=== PATIENT | male | born 1960 | race Caucasian/White ===

== ENCOUNTER → 2016-02-27 | Outpatient (CLI) | payer BC ==
[~2016-02-27] MED LIST: ALBU8.5H6 INH; CLON1TAB3 PO; SCR1T PO
[2016-02-27 15:05] LABS: BASOPHILS % (AUTO) 1 % (0-2); EOSINOPHILS # (AUTO) 0.3 10^3uL; EOSINOPHILS % (AUTO) 3 % (0-4); LYMPHOCYTES # (AUTO) 3.1 X10^3; MEAN CORPUSCULAR HEMOGLOBIN 28.1 PG (26.0-34.0); MEAN CORPUSCULAR HGB CONC 34.8 g/dL (31.0-37.0); MEAN CORPUSCULAR VOLUME 81 FL (80-100); MEAN PLATELET VOLUME 10.4 FL (6.0-9.5); MONOCYTES # (AUTO) 1.1 X10^3; MONOCYTES % (AUTO) 11 % (3-11); NEUTROPHILS % (AUTO) 57 % (51-67); PLATELET COUNT 210 10^3uL (150-450); WHITE BLOOD COUNT 10.53 10^3uL (4.0-11.0)
[2016-02-27 15:28] LABS: GLUCOSE, URINE (UA) Negative (Negative); LEUKOCYTE ESTERASE, URINE Negative (Negative)
[2016-02-27 15:30] LABS: ALBUMIN 4.8 g/dL (3.4-5.0); ANION GAP 19.9 MEQ/L (3-15); TOTAL PROTEIN 8.1 g/dL (6.4-8.5)
[2016-02-27 15:44] LABS: BILIRUBIN,URINE 2+ (Negative); CLARITY,URINE Slightly Cloudy; COLOR,URINE Dark Yellow
[2016-02-27 15:47] LABS: URINE CENTRIFUGED VOLUME 12 mL
[2016-02-27 15:50] LABS: RBC,URINE 0-2 /HPF
[2016-02-27 15:51] LABS: AMPHETAMINE SCREEN, URINE Negative (Negative); CANNABINOID SCREEN, URINE Negative (Negative); METHAMPHETAMINE SCREEN URINE S NEGATIVE (NEGATIVE); OPIATE SCREEN URINE Negative (Negative)
[2016-02-27 15:52] LABS: PROPOXYPHENE STAT NEGATIVE (NEGATIVE)
== END ==
LOC: LAB 14:45
PROVIDERS: ATTEND Family Medicine
DX: R56.9 Unspecified convulsions (principal)
CPT/HCPCS: 36415; 80053; 80307; 81003; 81015; 84443; 85025

== ENCOUNTER → 2016-03-01 | Outpatient (CLI) | payer BC ==
--- NOTE | 2016-03-01 07:35 | Diagnostic Imaging Report ---
EXAM: FACIAL BONES, 2 VIEWS OR LESS INDICATION: Pre-MRI evaluation. COMPARISON: None. FINDINGS: No radiopaque foreign bodies. The paranasal sinuses are well aerated without air-fluid levels. No fractures identified. IMPRESSION: No radiopaque foreign bodies to preclude MRI examination. Dictated by: Dictated on workstation # [id number]
--- NOTE | 2016-03-01 08:52 | Diagnostic Imaging Report ---
PROCEDURE: MR imaging of the brain without contrast. TECHNIQUE: Multiplanar, multisequence MR imaging of the brain was performed without contrast. INDICATION: Convulsions. COMPARISON: MRI brain without and with IV contrast 09/02/2007. FINDINGS: Moderate generalized cerebral and cerebellar parenchymal volume loss. Minimal punctate T2 hyperintensities in the supratentorial white matter, presumed leukoaraiosis. No other abnormal intracranial signal, restricted water diffusion, hemosiderin deposition. Normal morphology including the major midline structures, cerebellopontine angle and posterior fossa. No extra-axial fluid collections or hydrocephalus. Normal intracranial flow voids. The orbits and paranasal sinuses are unremarkable. IMPRESSION: 1. Moderate generalized parenchymal volume loss and minimal chronic small vessel ischemic change. 2. No acute intracranial MRI findings. Dictated by: Dictated on workstation # [id number]
== END ==
LOC: RAD 06:39
PROVIDERS: ATTEND Family Medicine
DX: R56.9 Unspecified convulsions (principal); G93.89 Other specified disorders of brain
CPT/HCPCS: 70140; 70551